=== PATIENT | male | born 1950 | race Asian ===

== ENCOUNTER 2016-12-15 12:01 | Emergency (ER) | payer MEDICARE, MEDICAID ==
[~2016-12-15] VITALS: Ht 162.6 cm; Wt 61.4 kg
[2016-12-15] MEDS ORDERED: LISI1TAB11 PO (12:23)
[2016-12-15] MEDS ORDERED: DiphenhydrAMINE HCL 25 MG CAPSULE PO ONE (14:00)
[2016-12-15] MEDS ORDERED: PredniSONE 20 MG TABLET PO ONE (14:00)
[2016-12-15 15:36] VITALS: BP 155/96
== END 2016-12-15 15:54 | disposition home or self-care (01) ==
LOC: EMS 12:02
DX: R21 Rash and other nonspecific skin eruption (principal); I10 Essential (primary) hypertension; Z91.012 Allergy to eggs
CPT/HCPCS: 99283; J7512

== ENCOUNTER 2018-06-19 16:15 | Emergency (ER) | payer OTHER ==
[~2018-06-19] VITALS: Ht 160 cm; Wt 72.7 kg
[~2018-06-19 16:15] MED LIST: LISI1TAB11 PO
[2018-06-19] MEDS ORDERED: BENA5TAB26 PO (16:31)
[2018-06-19] MEDS ORDERED: AMLO2.5T4 PO (16:31)
[2018-06-19] MEDS ORDERED: SITA50 PO (16:31)
[2018-06-19] MEDS ORDERED: ATOR20TA86 PO (16:31)
[2018-06-19] MEDS ORDERED: ASPI81 PO (16:31)
[2018-06-19 16:34] LABS: GLUCOSE,POINT OF CARE 172 MG/DL (70-110)
[2018-06-19 17:39] LABS: HEMATOCRIT 46.1 % (41-53); HEMOGLOBIN 15.4 g/dL (13.5-17.5); LYMPHOCYTES # (AUTO) 0.9 K/uL (1.0-4.8); LYMPHOCYTES % (AUTO) 10.2 % (22.0-44.0); MEAN CORPUSCULAR HEMOGLOBIN 29.8 pg (26.0-34.0); MEAN CORPUSCULAR HGB CONC 33.5 G/dL (31.0-37.0); MEAN CORPUSCULAR VOLUME 89 fL (80-100); MONOCYTES # (AUTO) 0.8 K/uL (0.1-1.0); MONOCYTES % (AUTO) 9.1 % (2.0-9.0); NEUTROPHILS # (AUTO) 6.8 K/uL (1.8-7.7); NEUTROPHILS % (AUTO) 77.7 % (40.0-70.0); PLATELET COUNT (AUTO) 320 K/uL (150-450); RED BLOOD CELL COUNT(AUTO) 5.18 MIL/uL (4.50-5.90); RED CELL DISTRIBUTION WIDTH 14.7 % (11.5-14.5)
[2018-06-19 17:49] LABS: CALCIUM, TOTAL 9.8 mg/dL (8.8-10.5); CREATININE 1.41 mg/dL (0.60-1.30); POTASSIUM 3.8 mmol/L (3.5-5.1)
[2018-06-19 17:55] LABS: BILIRUBIN,TOTAL 0.6 mg/dL (0.1-1.0); TOTAL PROTEIN, SERUM 8.4 g/dL (6.4-8.2)
[2018-06-19] MEDS ORDERED: KETOROLAC TROMETHAMINE 30 MG/ML VIAL IM ONE (19:45)
[2018-06-19] MEDS ORDERED: KETOROLAC TROMETHAMINE 60 MG/2 ML VIAL IM ONE (19:45)
[2018-06-19] MEDS ORDERED: PredniSONE 20 MG TABLET PO ONE (19:45)
[2018-06-19 19:49] VITALS: BP 157/97
[2018-06-19 20:06] LABS: URIC ACID 7.7 mg/dL (2.6-7.2)
== END 2018-06-19 19:57 | disposition home or self-care (01) ==
LOC: EMS 16:16
DX: M19.031 Primary osteoarthritis, right wrist (principal); I10 Essential (primary) hypertension; E11.9 Type 2 diabetes mellitus without complications; E78.00 Pure hypercholesterolemia, unspecified; F17.210 Nicotine dependence, cigarettes, uncomplicated; Z79.82 Long term (current) use of aspirin; Z79.899 Other long term (current) drug therapy
CPT/HCPCS: 36415; 73130; 80053; 82962; 83880; 84550; 85025; 85379; 96372; 99284; J1885; J7512